=== PATIENT | male | born 1975 | race Caucasian/White ===

== ENCOUNTER 2025-09-26 06:37 | Emergency (ER) | payer OTHER ==
[2025-09-26] MEDS ORDERED: IBUPROFEN 600 MG TAB PO ONE (07:30)
[2025-09-26 08:32] VITALS: BP 154/113
== END 2025-09-26 08:30 | disposition home or self-care (01) ==
LOC: ED 06:37
DX: S86.911A Strain of unspecified muscle(s) and tendon(s) at lower leg level, right leg, initial encounter (principal); X58.XXXA Exposure to other specified factors, initial encounter
CPT/HCPCS: 99283-25; A9270